=== PATIENT | female | born 2000 | race African-American/Black ===

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

== ENCOUNTER → 2019-01-17 14:00 | Outpatient (CLI) | payer MEDICAID ==
[2018-08-03 18:20] VITALS: BMI 21.8
[~2019-01-17 14:00] MED LIST changes: +PRENAVITE1 TAB PO
[2019-01-17 15:12] LABS: BASOPHILS 0.3 % (0-2); EOSINOPHILS 0.9 % (0-7); HEMATOCRIT 27.1 % (36.0-48.0); HEMOGLOBIN 8.9 g/dL (12-16); IMMATURE GRANULOCYTES 0.2 % (0-5); LYMPHOCYTES 20.2 % (15-50); MCH 25.9 pg (26.0-34.0); MCHC 32.8 g/dL (31.0-37.0); MEAN PLATELET VOLUME 9.9 fL (7.4-10.4); MONOCYTES 7.1 % (2-11); NEUTROPHILS 71.3 % (40-80); PLATELET COUNT 207 10x3/uL (130-400); RBC 3.43 10x6/uL (4.00-5.40); RDW 14.9 % (11.5-14.5); WBC 5.8 10x3/uL (4.8-10.8)
[2019-01-17 15:24] LABS: APPEARANCE HAZY (CLEAR); BILIRUBIN NEGATIVE (NEGATIVE); COLOR YELLOW (YELLOW); GLUCOSE NEGATIVE (NEGATIVE); KETONE NEGATIVE (NEGATIVE); NITRITE NEGATIVE (NEGATIVE); PROTEIN NEGATIVE (NEGATIVE); RED CELLS - URINE OCC /hpf (0-5); SPECIFIC GRAVITY 1.005 (1.005-1.020); UROBILINOGEN NORMAL (NORMAL); WHITE CELLS - URINE 0-5 /hpf (0-5)
[2019-01-17 15:25] LABS: BACTERIA MODERATE /hpf (NONE SEEN)
[2019-01-17 15:32] LABS: ALBUMIN 2.4 g/dL (3.4-5.0); ALKALINE PHOSPHATASE 57 U/L (46-116); ALT (SGPT) 12 U/L (10-68); BILIRUBIN - DIRECT 0.05 mg/dL (0.00-0.30); BILIRUBIN - TOTAL 0.15 mg/dL (0.2-1.3); CALC OSMOLALITY 270 mosm/kg (275-300); CARBON DIOXIDE 21.1 mmol/L (21.0-32.0); CHLORIDE - SERUM 107 mmol/L (98-107); CREATININE - SERUM 0.4 mg/dL (0.6-1.3); GLUCOSE 94 mg/dL (74-106); POTASSIUM - SERUM 3.3 mmol/L (3.5-5.1); PROTEIN - SERUM 5.8 g/dL (6.4-8.2); SODIUM 137 mmol/L (136-145); UREA NITROGEN 4 mg/dL (7-18); URIC ACID 4.1 mg/dL (2.6-7.2); eGFR NON AFRICAN AMERICAN > 90 mL/min (90-120)
== END | disposition home or self-care (01) ==
LOC: D.LDO 14:00
PROVIDERS: ATTEND Obstetrics & Gynecology
DX: O16.3 Unspecified maternal hypertension, third trimester (principal); Z3A.32 32 weeks gestation of pregnancy

== ENCOUNTER → 2019-01-20 10:05 | Outpatient (CLI) | payer MEDICAID ==
[2018-08-03 18:20] VITALS: BMI 21.8
[~2019-01-20 10:05] MED LIST changes: +HYDROCODON-ACE1 EA10 PO; +IBUPROFEN600 MG PO
== END ==
LOC: D.LDO 10:05
PROVIDERS: ATTEND Obstetrics & Gynecology
DX: O16.9 Unspecified maternal hypertension, unspecified trimester (principal); Z3A.00 Weeks of gestation of pregnancy not specified

== ENCOUNTER → 2019-01-20 19:33 | Outpatient (CLI) | payer MEDICAID ==
[2018-08-03 18:20] VITALS: BMI 21.8
== END | disposition home or self-care (01) ==
LOC: D.LDO 19:33
PROVIDERS: ATTEND Obstetrics & Gynecology
DX: O26.899 Other specified pregnancy related conditions, unspecified trimester (principal); Z3A.00 Weeks of gestation of pregnancy not specified

== ENCOUNTER → 2019-01-23 11:23 | Outpatient (CLI) | payer MEDICAID ==
[2018-08-03 18:20] VITALS: BMI 21.8
[~2019-01-23 11:23] MED LIST changes: -HYDROCODON-ACE1 EA10 PO; -IBUPROFEN600 MG PO
[2019-01-26 10:25] LABS: PROTEIN - URINE 23.3 mg/dL (0.0-11.9)
== END | disposition home or self-care (01) ==
LOC: D.LDO 11:23
PROVIDERS: ATTEND Obstetrics & Gynecology
DX: O16.3 Unspecified maternal hypertension, third trimester (principal); Z3A.33 33 weeks gestation of pregnancy

== ENCOUNTER → 2019-01-26 09:22 | Outpatient (CLI) | payer MEDICAID ==
[2018-08-03 18:20] VITALS: BMI 21.8
[2019-01-26 10:45] LABS: BASOPHILS 0.2 % (0-2); HEMATOCRIT 26.4 % (36.0-48.0); HEMOGLOBIN 8.7 g/dL (12-16); IMMATURE GRANULOCYTES 0.2 % (0-5); LYMPHOCYTES 21.7 % (15-50); MCH 25.8 pg (26.0-34.0); MCV 78.3 fL (80.0-100.0); MONOCYTES 5.5 % (2-11); NEUTROPHILS 71.4 % (40-80); PLATELET COUNT 201 10x3/uL (130-400); RBC 3.37 10x6/uL (4.00-5.40); RDW 15.2 % (11.5-14.5); WBC 4.9 10x3/uL (4.8-10.8)
[2019-01-26 11:05] LABS: ALBUMIN 2.4 g/dL (3.4-5.0); ALKALINE PHOSPHATASE 68 U/L (46-116); ALT (SGPT) 12 U/L (10-68); CALC OSMOLALITY 271 mosm/kg (275-300); CALCIUM 7.6 mg/dL (8.5-10.1); CARBON DIOXIDE 22.7 mmol/L (21.0-32.0); CHLORIDE - SERUM 106 mmol/L (98-107); CREATININE - SERUM 0.5 mg/dL (0.6-1.3); GLUCOSE 96 mg/dL (74-106); POTASSIUM - SERUM 3.1 mmol/L (3.5-5.1); PROTEIN - SERUM 5.8 g/dL (6.4-8.2); SODIUM 137 mmol/L (136-145); UREA NITROGEN 6 mg/dL (7-18); eGFR NON AFRICAN AMERICAN > 90 mL/min (90-120)
[2019-01-26 11:06] LABS: BILIRUBIN - DIRECT 0.08 mg/dL (0.00-0.30); BILIRUBIN - INDIRECT 0.12 mg/dL (0.00-1.00)
== END | disposition home or self-care (01) ==
LOC: D.LDO 09:22
PROVIDERS: ATTEND Obstetrics & Gynecology
DX: O26.893 Other specified pregnancy related conditions, third trimester (principal); Z3A.33 33 weeks gestation of pregnancy

== ENCOUNTER 2019-01-27 21:44 | Outpatient (CLI) | payer MEDICAID ==
[2018-08-03 18:20] VITALS: BMI 21.8
[2019-01-27 22:12] LABS: APPEARANCE HAZY (CLEAR); BILIRUBIN NEGATIVE (NEGATIVE); COLOR YELLOW (YELLOW); GLUCOSE NEGATIVE (NEGATIVE); KETONE NEGATIVE (NEGATIVE); NITRITE NEGATIVE (NEGATIVE); PROTEIN NEGATIVE (NEGATIVE)
[2019-01-27 23:09] LABS: BASOPHILS 0.3 % (0-2); EOSINOPHILS 0.8 % (0-7); HEMATOCRIT 27.6 % (36.0-48.0); HEMOGLOBIN 9.1 g/dL (12-16); IMMATURE GRANULOCYTES 0.2 % (0-5); LYMPHOCYTES 24.8 % (15-50); MCH 25.8 pg (26.0-34.0); MCV 78.2 fL (80.0-100.0); MEAN PLATELET VOLUME 9.6 fL (7.4-10.4); MONOCYTES 5.6 % (2-11); NEUTROPHILS 68.3 % (40-80); PLATELET COUNT 213 10x3/uL (130-400); RBC 3.53 10x6/uL (4.00-5.40); RDW 14.9 % (11.5-14.5)
[2019-01-27 23:10] LABS: WBC 6.6 10x3/uL (4.8-10.8)
[2019-01-31] MEDS ORDERED: MACROBID100 MG PO (16:34)
== END 2019-01-28 00:02 | disposition home or self-care (01) ==
LOC: D.LDO 21:44 → D.LD 22:47 → D.LDO 01-28 00:02
PROVIDERS: ATTEND Obstetrics & Gynecology
DX: O26.853 Spotting complicating pregnancy, third trimester (principal); Z3A.33 33 weeks gestation of pregnancy

== ENCOUNTER → 2019-01-31 16:11 | Outpatient (CLI) | payer MEDICAID ==
[2018-08-03 18:20] VITALS: BMI 21.8
[2019-01-31 16:45] LABS: BASOPHILS 0.3 % (0-2); EOSINOPHILS 0.4 % (0-7); HEMATOCRIT 27.5 % (36.0-48.0); HEMOGLOBIN 9.1 g/dL (12-16); IMMATURE GRANULOCYTES 0.3 % (0-5); LYMPHOCYTES 17.2 % (15-50); MCH 26.1 pg (26.0-34.0); MCHC 33.1 g/dL (31.0-37.0); MEAN PLATELET VOLUME 9.4 fL (7.4-10.4); NEUTROPHILS 76.8 % (40-80); PLATELET COUNT 191 10x3/uL (130-400); RBC 3.48 10x6/uL (4.00-5.40); RDW 15.2 % (11.5-14.5); WBC 6.8 10x3/uL (4.8-10.8)
[2019-01-31 17:04] LABS: ALBUMIN 2.4 g/dL (3.4-5.0); ALKALINE PHOSPHATASE 78 U/L (46-116); ALT (SGPT) 8 U/L (10-68); BILIRUBIN - TOTAL 0.19 mg/dL (0.2-1.3); CALC OSMOLALITY 272 mosm/kg (275-300); CALCIUM 7.7 mg/dL (8.5-10.1); CARBON DIOXIDE 23.2 mmol/L (21.0-32.0); CHLORIDE - SERUM 106 mmol/L (98-107); CREATININE - SERUM 0.6 mg/dL (0.6-1.3); GLUCOSE 96 mg/dL (74-106); POTASSIUM - SERUM 3.4 mmol/L (3.5-5.1); PROTEIN - SERUM 5.9 g/dL (6.4-8.2); SODIUM 138 mmol/L (136-145); UREA NITROGEN 4 mg/dL (7-18); eGFR NON AFRICAN AMERICAN > 90 mL/min (90-120)
== END | disposition home or self-care (01) ==
LOC: D.LDO 16:11
PROVIDERS: ATTEND Obstetrics & Gynecology
DX: O16.2 Unspecified maternal hypertension, second trimester (principal)

== ENCOUNTER 2019-02-14 11:21 | Inpatient (IN) | payer MEDICAID ==
[~2019-02-14] VITALS: Ht 167.6 cm; Wt 69.9 kg
[2019-02-14] VITALS (14 sets, daily range): BP systolic 126–155; BP diastolic 59–83; Ht 167.6 cm; Wt 69.9 kg
--- NOTE | ~2019-02-14 | OP ---
PATIENT NAME: KE HAMLIN MEDICAL RECORD: [id number] :99 LOCATION:[facility] [id number] ADMISSION DATE:02/14/19 SURGEON: ISAIAH CABRAL MD DATE OF OPERATION: 02/14/2019 PREOPERATIVE DIAGNOSES: 1. Intrauterine at 36 weeks. 2. Biophysical profile of 10/25. 3. Absent variability on heart rate tracing. POSTOPERATIVE DIAGNOSES: 1. 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 2. Particulate meconium. PROCEDURE: A primary low transverse section. SURGEON: Isaiah Cabral MD ANESTHESIA: Regional via spinal. INTRAVENOUS FLUIDS: Per anesthesia record. SPECIMENS: Placenta and cord for gases. FINDINGS: 1. Amniotic band wrapped around several areas of the cord, causing partial strangulation. 2. Particulate meconium noted. 3. Viable infant, Apgars 9 at one and 9 at five. 4. Placenta delivered manually intact, 3-vessel cord and lasting normal adnexa bilaterally. SPECIMENS: Include placenta and cord for gases. COMPLICATIONS: None apparent. ESTIMATED BLOOD LOSS: 1000 mL. IV FLUIDS: Per anesthesia record. PROCEDURE: The patient taken to the operating room where regional anesthesia was achieved without difficulty. The patient was then prepped and draped in normal sterile fashion in the dorsal supine position. A Roach catheter was in place and draining freely. SCDs were on and functioning normally. Following prep and drape, a Pfannenstiel skin incision was made, extended downward to the underlying subcutaneous fat to level of fascia. The fascia was incised in the midline using the scalpel. The fascial incision extended bilaterally using the Huang scissors. The superior aspect and inferior aspect of the fascial incision were grasped with Carina clamps times 2, tented upward, and sharply dissected from the underlying rectus muscle using the Huang scissors and Bovie cautery. Rectus muscle was bluntly in the midline and the peritoneum was entered at the superior aspect of the incision using the Metzenbaum scissors. The peritoneal incision was then extended bilaterally using the Metzenbaum scissors and direct visualization of the bladder. A bladder blade was placed into the pelvis. A bladder flap was created by excising the anterior leaf of OPERATIVE REPORT [id number] KE HAMLIN the broad ligament across the lower uterine segment. A bladder blade was then replaced over the bladder flap. A low transverse incision was then made in the uterus and extended superiorly and inferiorly using the Pelosi method. meconium was noted upon entry into the uterus. The vertex was delivered atraumatically followed by the body. Of note, was an amniotic band which was wrapped concentrically around multiple parts of the cord, which were found to be significantly narrowed and possibly strangulated. The was bulb suctioned and the cord clamped times 2, cut, and the was handed to awaiting nursery team. Cord was then obtained for gases. The placenta was removed manually intact. Uterus was then exteriorized, cleared of all clots and debris and vigorously massaged. A good uterine tone was noted. The uterine incision was repaired with 0 Vicryl in a running locked fashion times 2 with good hemostasis noted. Posterior cul-de-sac was then thoroughly irrigated and uterus was placed into the pelvis. Anterior cul-de-sac was then thoroughly irrigated. Counts were correct times 2 for sponges, needles, and instruments. The fascia was repaired with 0 loop PDS times 1 and skin repaired with jacki. The patient tolerated procedure well, transferred to postanesthesia recovery stable without incident. TRANSINT:[id number] Voice Confirmation ID: [id number] DOCUMENT ID: [id number] ISAIAH CABRAL MD CC: [id number] DICTATION DATE: 02/18/19 170 PROPERTY CARETAKER: [id number] DIS IN 02/16/19 [facility] [address] [place] [address]
[2019-02-14 12:13] LABS: HEMATOCRIT 27.3 % (36.0-48.0); HEMOGLOBIN 8.9 g/dL (12-16); MCH 25.9 pg (26.0-34.0); MCHC 32.6 g/dL (31.0-37.0); MCV 79.6 fL (80.0-100.0); MEAN PLATELET VOLUME 9.5 fL (7.4-10.4); RBC 3.43 10x6/uL (4.00-5.40); RDW 15.8 % (11.5-14.5); WBC 4.7 10x3/uL (4.8-10.8)
--- NOTE | 2019-02-14 12:57 | NUR ---
1249 VIABLE BABY GIRL DELIVERED, CORD BLOOD AND GASES DONE AND SENT OUT, DENA.
--- NOTE | 2019-02-14 13:48 | NUR ---
RECEIVED PT FROM VIA BED TO ROOM 1276. BED LOCKED. PT AWAKE, AA0 X 3. VSS. HRRR WITHOUT AUDIBLE MURMUR. BBS CLEAR. BS X 4. ABDOMEN SOFT/NON-DISTENDED. FUNDUS FIRM AT U/1. RUBRA LOCHIA SMALL AMT. NO CLOTS NOTED. ABDOMINAL DRESSING DRY WITHOUT DRAINAGE NOTED. PPP. NO EDEMA NOTED TO BLE. PIV TO RIGHT AC WITH NS INFUSING AT KVO RATE. SITE CLEAR. PIV TO LEFT WRIST WITH LR WITH PITOCIN 20 UNITS INFUSING AT 125 ML/HR. SITE CLEAR. ICE PACK TO INCISION. BARRAZA TO GRAVITY DRAINING CLEAR YELLOW URINE INTO BAG. SR UP X 2. CALL LIGHT IN REACH. SCDS ON BLE. PUMP ON.
--- NOTE | 2019-02-14 13:59 | NUR ---
SECOND UNIT PACKED RBC'S UP AT 75 ML/HR TO RIGHT AC. SITE CLEAR.
--- NOTE | 2019-02-14 15:09 | NUR ---
PACKED RBC RATE INCREASED TO 250 ML/HR.
--- NOTE | 2019-02-14 15:50 | NUR ---
unit of prbc finished infusing- line being flushed with ns.
--- NOTE | 2019-02-14 16:27 | NUR ---
IV SITE RT ARM FLUSHED WITH NS AND SALINE LOCK DONE.
--- NOTE | 2019-02-14 16:50 | NUR ---
DR HANDY NOTIFIED SECOND UNIT OF BLOOD COMPLETED. STATES ORDER FOR CBC IN FOR 1999 TONIGHT. NO NEW ORDERS.
--- NOTE | 2019-02-14 17:09 | NUR ---
sitting up in bed- sipping on clear liq diet. ice pac refreshed. fundus uu/firm- no lochia no clots with massage. small to mod lochia noted on her pads- pads changed- rick care done.
--- NOTE | 2019-02-14 19:00 | NUR ---
REPORT RECEIVED FROM CYNTHIA WHEELER. NO REPORTS OF DISTRESS RECEIVED.
--- NOTE | 2019-02-14 19:31 | NUR ---
PATIENT SITTING UP IN BED. PATIENT ALERT AND ORIENTED. ASSESSMENT AND VITAL SIGNS DONE. RESPIRATIONS AT EASE. LUNG SOUNDS CLEAR IN ALL DONOHUE. HEART REGULAR RATE AND RHYTHM. ABDOMEN SOFT AND TENDER TO TOUCH. BOWEL SOUNDS PRESENT IN ALL QUADRANTS. FUNDUS FIRM AND 2 BELOW UMBILICUS. DRESSING DRY AND INTACT. SMALL AMOUNT OF LOCHIA NOTED ON ROCKY PAD. NO EDEMA NOTED. SCD'S ON AND WORKING. BARRAZA CATHETER INTACT AND DRAINING CLEAR YELLOW URINE TO GRAVITY. IV PATENT. NO REDNESS OR EDEMA NOTED TO SITE. PATIENT STATES PAIN 2 OUT OF 10. PATIENT EDUCATED ON COUGHING AND DEEP BREATHING WELL USE OF INCENTIVE SPIROMETER. PATIENT VERBALIZED UNDERSTANDING.
--- NOTE | 2019-02-14 20:27 | NUR ---
LAB CALLED AT THIS TIME TO CHECK ON STATUS OF 2000 LAB DRAW. STOPPING BUILDER STATES SHE IS NOT SURE WHEN THEY WILL BE ABLE TO DO BLOOD WORK BECAUSE SHE IS THE ONLY STOPPING BUILDER AT THIS TIME.
--- NOTE | 2019-02-14 21:00 | NUR ---
PATIENT SITTING UP IN BED. DENIES PAIN AT THIS TIME. RESPIRATIONS AT EASE. PROVIDED PATIENT WILL JELLO AND POPSICKLE. PATIENT DENIES ANY FURTHER NEEDS. BED IN LOWEST POSITION, SIDE RAILS UP X 2, C/L, CRYPTOGRAPHIC MACHINE OPERATOR BUTTON, AND WATER WITHIN REACH.
--- NOTE | 2019-02-14 21:15 | NUR ---
LAB HERE TO DRAW LAB WORK.
[2019-02-14 21:22] LABS: BASOPHILS 0.2 % (0-2); EOSINOPHILS 0.2 % (0-7); HEMATOCRIT 29.3 % (36.0-48.0); HEMOGLOBIN 10.1 g/dL (12-16); IMMATURE GRANULOCYTES 0.2 % (0-5); LYMPHOCYTES 15.2 % (15-50); MCH 27.2 pg (26.0-34.0); MCHC 34.5 g/dL (31.0-37.0); MCV 78.8 fL (80.0-100.0); MEAN PLATELET VOLUME 9.3 fL (7.4-10.4); MONOCYTES 8.7 % (2-11); NEUTROPHILS 75.5 % (40-80); RBC 3.72 10x6/uL (4.00-5.40); RDW 15.1 % (11.5-14.5)
[2019-02-14 21:23] LABS: PLATELET COUNT 166 10x3/uL (130-400); WBC 6.2 10x3/uL (4.8-10.8)
--- NOTE | 2019-02-14 21:30 | NUR ---
NOTIFIED OF CBC RESULTS. NO NEW ORDERS AT THIS TIME.
--- NOTE | 2019-02-14 22:45 | NUR ---
PATIENT LYING IN BED WITH EYES CLOSED. RESPIRATIONS AT EASE. NO SIGNS OF DISTRESS NOTED. BED IN LOWEST POSITION, SIDE RAILS UP X 2, C/L, CENTRAL OFFICE FRAME WIRER BUTTON, AND WATER WITHIN REACH.
--- NOTE | 2019-02-14 23:31 | NUR ---
PATIENT SITTING UP IN BED WATCHING TV. DENIES PAIN AT THIS TIME. DENIES ANY NEEDS. BED IN LOWEST POSITION, SIDE RAILS UP X 2, C/L, UTILITY BILL COMPLAINTS INVESTIGATOR BUTTON, AND WATER WITHIN REACH.
--- NOTE | 2019-02-15 00:30 | NUR ---
PATIENT LYING IN BED WITH EYES CLOSED. RESPIRATIONS AT EASE. NO SIGNS OF DISTRESS NOTED. BED IN LOWEST POSITION, SIDE RAILS UP X 2, C/L, SUPERVISOR WATER SOFTENER SERVICE BUTTON, AND WATER WITHIN REACH.
[2019-02-15 00:31] VITALS: BP 135/80
--- NOTE | 2019-02-15 01:50 | NUR ---
PATIENT LYING QUIETLY IN BED WITH EYES CLOSED. EASILY AROUSED. RESPIRATIONS AT EASE. DENIES PAIN AT THIS TIME. BED IN LOWEST POSTION, SIDE RAILS UP X 2, C/L, MASTER GLAZIER BUTTON, AND WATER WITHIN REACH.
--- NOTE | 2019-02-15 03:30 | NUR ---
PATIENT LYING QUIETLY IN BED WITH EYES CLOSED. EASILY AROUSED. RESPIRATIONS AT EASE. PATIENT DENIES ANY PAIN. DENIES ANY NEEDS OR CONCERNS AT THIS TIME. BED IN LOWEST POSTION, SIDE RAILS UP X 2, C/L, NITROGLYCERIN DISTRIBUTOR BUTTON, AND WATER WITHIN REACH.
[2019-02-15 05:31] VITALS: BP 139/84
--- NOTE | 2019-02-15 05:53 | NUR ---
PATIENT LYING QUIETLY IN BED WITH EYES CLOSED. EASILY AROUSED. STATES PAIN 3 OUT OF 10. ICE PACK APPLIED TO INCISION. ROCKY PAD CHANGED. SMALL AMOUNT OF LOCHIA NOTED ON ROCKY PAD. BARRAZA CATHETER EMPTIED. 600 CC'S OF DARK YELLOW URINE OBTAINED. IV PUMPS CLEARED. CUP OF ICE WATER GIVEN TO PATIENT. PATIENT DENIES ANY FURTHER NEEDS. BED IN LOWEST POSITION, SIDE RAILS UP X 2, C/L, WATER, AND SIEBEL ARCHITECT BUTTON WITHIN REACH.
[2019-02-15 06:09] LABS: RAPID PLASMA REAGIN Non Reactive (Non Reactive)
[2019-02-15 06:13] LABS: BASOPHILS 0.2 % (0-2); EOSINOPHILS 0.6 % (0-7); HEMATOCRIT 31.5 % (36.0-48.0); HEMOGLOBIN 10.7 g/dL (12-16); IMMATURE GRANULOCYTES 0.2 % (0-5); LYMPHOCYTES 14.7 % (15-50); MCH 27.1 pg (26.0-34.0); MCV 79.7 fL (80.0-100.0); MEAN PLATELET VOLUME 9.9 fL (7.4-10.4); MONOCYTES 7.9 % (2-11); NEUTROPHILS 76.4 % (40-80); PLATELET COUNT 181 10x3/uL (130-400); RBC 3.95 10x6/uL (4.00-5.40); RDW 15.1 % (11.5-14.5); WBC 6.6 10x3/uL (4.8-10.8)
--- NOTE | 2019-02-15 07:11 | NUR ---
RECEIVED PT IN SEMI-HINOJOSA'S POSITION . AAO X 3. PT DENIES NEEDS OR C/O AT THIS TIME.
[2019-02-15 08:04] VITALS: BP 131/79
--- NOTE | 2019-02-15 08:10 | NUR ---
PT FINISHED WITH . VSS. HRRR WITHOUT AUDIBLE MURMUR. BBS CLEAR. BS X 4. ABDOMEN SOFT/NON-DISTENDED. PT STATES BELCHING, BUT NO GAS. ABDOMINAL INCISION OPEN TO AIR WITH JOVANNI INTACT. NO REDNESS, SWELLING OR DRAINAGE NOTED. FUNDUS FIRM AT U/1. RUBRA LOCHIA SMALL AMT. PERIPAD CHANGED. NEG HOMANS' SIGN. PPP. NO EDEMA NOTED TO BLE. PIV CONVERTED TO SL TO LEFT WRIST. SITE CLEAR. SL TO RIGHT AC. SITE CLEAR. BARRAZA DC'D WITH 150 ML OF DARK, YELLOW URINE NOTED IN BAG. PT DENIES C/O OR NEEDS.
--- NOTE | 2019-02-15 08:15 | NUR ---
PT C/O INCISIONAL PAIN OF "4" ON 0-10 PAIN SCALE. MOTRIN 600 MG AND NORCO 10/325 GIVEN PO ORDERED. PT INSTRUCTED ON MED. VERBALIZES UNDERSTANDING.
--- NOTE | 2019-02-15 09:54 | NUR ---
PT LYING SUPINE IN BED. EYES CLOSED. RESP NON-LABORED. PT NOT DISTURBED TO ALLOW FOR REST. SR UP X 2. CALL LIGHT IN REACH.
--- NOTE | 2019-02-15 10:55 | NUR ---
PT C/O ITCHING. NO RASH OR REDDENED AREAS NOTED.
--- NOTE | 2019-02-15 11:15 | NUR ---
BENADRYL 25 MG GIVEN PO ORDERED FOR PT C/O ITCHING.
--- NOTE | 2019-02-15 11:30 | NUR ---
PT OOB AND AMB TO BR. VOIDS 500 ML OF BLOOD-TINGED URINE. PERICARE DONE PER PT. PANTIES AND PAD ON. PT SITS UP ON COUCH PER PT REQUEST. DENIES C/O OR NEEDS.
--- NOTE | 2019-02-15 12:20 | NUR ---
PT SITTING UP IN BED. INFANT. DENIES C/O OR NEEDS.
--- NOTE | 2019-02-15 13:20 | NUR ---
PT AMBULATORY IN HALLS TO NURSERY TO TAKE PUMPED BREASTMILK TO NURSERY STAFF. PT FLORI ACTIVITY WELL.
--- NOTE | 2019-02-15 14:04 | NUR ---
PT LYING TO LEFT SIDE IN BED. EYES CLOSED. RESP NON-LABORED. PT NOT DISTURBED TO ALLOW FOR REST. SR UPX 2. CALL LIGHT IN REACH.
--- NOTE | 2019-02-15 15:32 | NUR ---
PT AMBULATORY IN ROOM. PT BACK TO BED. C/O INCISIONAL PAIN OF "4" ON 0-10 PAIN SCALE. MOTRIN 600 MG AND NORCO 10/325 GIVEN PO ORDERED. INSTRUCTED ON MEDS. VERBALIZES UNDERSTANDING.
[2019-02-15 15:34] VITALS: BP 128/72
--- NOTE | 2019-02-15 15:54 | NUR ---
PT UP TO BR. VOIDS 500 ML OF CLOUDY, YELLOW URINE. PT UP TO SHOWER. BED LINENS CHANGED.
--- NOTE | 2019-02-15 16:32 | NUR ---
PT SITTING UP IN BED. PUMPING BREASTMILK AT THIS TIME. DENIES PAIN OR NEEDS.
--- NOTE | 2019-02-15 17:30 | NUR ---
PT SITTING UP IN BED. INFANT. CATHELON TO SL IN LEFT WRIST NOTED OUT. DC'D AND PRESSURE BANDAGE TO SITE.
--- NOTE | 2019-02-15 19:20 | NUR ---
BEDSIDE REPORT REC'D FROM Chandrakant DIAZ RN. LAYING ON RIGHT SIDE RESTING WITH EYES CLOSED. RESPIRATIONS REGULAR AND UNLABORED, NO S/S OF DISTRESS NOTED. PT NOT DISTURBED TO ALLOW FOR REST AT THIS TIME. WILL CONTINUE TO MONITOR.
[2019-02-15 20:09] VITALS: BP 127/69
--- NOTE | 2019-02-15 20:09 | NUR ---
SHIFT ASSESSMENT COMPLETED PER FLOWSHEET. DENIES PAIN AT THIS TIME. VSS. FUNDUS FIRM, MIDLINE, AND U2, SCANT RUBRA LOCHIA, NO CLOTS NOTED. REPORTS THAT SHE IS VOIDING AND PASSING FLATUS WITHOUT DIFFICULTY. RT A/C PIV FLUSHED WITHOUT DIFFICULTY WITH 10 MLS NS, NO S/S OF INFILTRATION NOTED, DRSG CHANGED. ICE WATER PROVIDED. REFUSES SCD'S. POC DISCUSSED WIT PT AND S/O, VERBALIZES UNDERSTANDING AND DENIES QUESTIONS. BED IN LOW POSITION WITH UPPER SIDE RAILS RAISED X2. CALL LIGHT AND PHONE WITHIN REACH.
--- NOTE | 2019-02-15 21:10 | NUR ---
BF AT THIS TIME. DENIES PAIN AND NEEDS. SIGNIFICANT OTHER RESTING ON COUCH AT BEDSIDE. BED IN LOW POSITION WITH UPPER SIDE RAILS RAISED X2. CALL LIGHT AND PHONE WITHIN REACH. WILL CONTINUE TO MONITOR.
--- NOTE | 2019-02-15 23:01 | NUR ---
C/O PAIN 5/10, ABD CRAMPING AND INCISIONAL BURNING AND STINGING. NORCO AND MOTRIN GIVEN PER ORDER AND PT REQUEST. ASSISTANCE WITH LATCHING PROVIDED PER PT REQUEST. DENIES ADDITIONAL NEEDS. REFUSES SCD'S. SIGNIFICANT OTHER RESTING ON COUCH AT BEDSIDE. BED IN LOW POSITION WITH UPPER SIDE RAILS RAISED X2. CALL LIGHT AND PHONE WITHIN REACH. ENCOURAGED PT TO CALL IF ASSISTANCE WITH BF NEEDED, VERBALIZES UNDERSTANDING.
--- NOTE | 2019-02-15 23:50 | NUR ---
PAIN REASSESSMENT COMPLETED, 08/27, DENIES NEED FOR ADDITIONAL INTERVENTION. BACK TO NBN PER PT REQUEST. DENIES NEEDS. REQUESTS THAT V/S BE TAKEN PRIOR TO NEXT FEEDING. CONTINUES TO REFUSE SCD'S. BED IN LOW POSITION WITH UPPER SIDE RAILS RAISED X2. CALL LIGHT AND PHONE WITHIN REACH. WILL CONTINUE TO MONITOR.
--- NOTE | 2019-02-16 01:52 | NUR ---
LAYING ON RIGHT SIDE RESTING WITH EYES CLOSED. RESP REGULAR AND UNLABORED, NO S/S OF DISTRESS NOTED. SIGNIFICANT OTHER RESTING ON COUCH AT BEDSIDE. BED IN LOW POSITION WITH UPPER SIDE RIALS RAISED X2. CALL LIGHT AND PHONE WITHIN REACH. WILL CONTINUE TO MONITOR.
--- NOTE | 2019-02-16 02:48 | NUR ---
BF AT THIS TIME. DENIES PAIN. ICE WATER PROVIDED PER PT REQUEST. INSTRUCTED TO CALL RN WHEN BF COMPLETED FOR V/S CHECK. VERBALIZES UNDERSTANDING. BED IN LOW POSITION WITH UPPER SIDE RAILS RAISED X2. CALL LIGHT AND PHONE WITHIN REACH. WILL CONTINUE TO MONITOR.
[2019-02-16 03:17] VITALS: BP 131/73
--- NOTE | 2019-02-16 03:17 | NUR ---
VSS. FUNDUS REMAINS FIRM, MIDLINE AND U2 WITH SCANT RUBRA LOCHIA, NO CLOTS NOTED. INFANT BACK TO NBN. DENIES PAIN AND NEEDS. SCD'S REFUSED. BED IN LOW POSITION WITH UPPER SIDE RAILS RAISED X2. CALL LIGHT AND PHONE WITHIN REACH. WILL CONTINUE TO MONITOR. SIGNIFICANT OTHER RESTING ON COUCH AT BEDSIDE.
--- NOTE | 2019-02-16 05:11 | NUR ---
LAYING ON LEFT SIDE RESTING WITH EYES CLOSED. RESP REGULAR AND UNLABORED, NO S/S OF DISTRESS NOTED. SIGNIFICANT OTHER RESTING ON COUCH AT BEDSIDE. BED IN LOW POSITION WITH UPPER SIDE RAILS RAISED X2. CALL LIGHT AND PHONE WITHIN REACH. WILL CONTINUE TO MONITOR AND ASSIST PRN.
--- NOTE | 2019-02-16 06:28 | NUR ---
PUMPING AT THIS TIME. C/O ABD AND INCISIONAL ACHING AND CRAMPING, / REQUESTS NORCO AND MOTRIN TOGETHER, GIVEN PER ORDER AND PT REQUEST. ICE WATER PROVIDED. RIGHT AC PIV FLUSHED WITH 10 MLS NS WITHOUT DIFFICULTY, NO S/S OF INFILTRATION NOTED, ECCHYMOSIS NOTED AROUND INSERTION, PT REPORTS THAT WAS DONE WHEN IV WAS STARTED, DENIES PAIN AND TENDERNESS AT SITE. SIGNIFICANT OTHER RESTING ON COUCH AT BEDSIDE. PT REPORTS THAT SHE WILL CALL FOR EBM TO BE SENT TO NBN WHEN SHE COMPLETES PUMPING. BED IN LOW POSITION WITH UPPER SIDE RAILS RAISED X2. CALL LIGHT AND PHONE WITHIN REACH. WILL CONTINUE TO MONITOR.
--- NOTE | 2019-02-16 07:12 | NUR ---
ASSUMED CARE OF THIS PATIENT AT THIS TIME. SLEEPING, RESPIRATIONS EVEN. INFANT IN NURSERY. SIDE RAILS UP X 2, CALL LIGHT IN REACH. WILL COMPLETE SHIFT ASSESSMENT WHEN AWAKE, AFTER BREAKFAST. ANTICIPATE DC HOME TODAY OR ROOMING-IN STATUS. A+ RUBELLA IMMUNE, GBS POSITIVE, TDAP LAST RECEIVED 2016- NEXT DUE 2026.
[2019-02-16] MEDS ORDERED: HYDROCODON-ACE1 EA10 PO (07:53)
[2019-02-16] MEDS ORDERED: IBUPROFEN600 MG PO (07:54)
[2019-02-16 08:14] VITALS: BP 138/66
--- NOTE | 2019-02-16 08:18 | NUR ---
UPON ENTERING ROOM PT EYES CLOSED HOLDING INFANT. AROUSED EASILY. TO CRIB, SHIFT ASSESSMENT COMPLETED. PER RECORDS PT IS SMOKER, PT SAYS SHE HAS NEVER SMOKED. BREASFEEDING AND SOME BOTTLEFEEDING. DENIES PAIN. VISITOR SLEEPING ON COUCH. DISCUSSED ROOMING-IN IF NOT DC'D HOME TODAY. SIDE RAILS UP X 2, CALL LIGHT IN REACH, INFANT BACK IN ARMS FOR PRIOR TO LEAVING ROOM, REMINDED PT NOT TO FALL ASLEEP WITH IN ARMS OR IN BED WITH HER. VERBALIZED UNDERSTANDING.
--- NOTE | 2019-02-16 09:58 | NUR ---
LAYING IN BED NAPPING, AROUSED EASILY. DENIES NEEDING ANYTHING AT THIS TIME. DR HANDY VISITED EARLIER. SIDE RAILS UP X 2, CALL LIGHT IN REACH. IN NURSERY, VISITOR SLEEPING ON COUCH.
--- NOTE | 2019-02-16 10:50 | NUR ---
SITTING UP IN BED TEXTING ON PHONE. SAYS SHE IS WAITING ON TO COME TO ROOM AT 11. DENIES PAIN OR NEEDING ANYTHING AT THIS TIME. SAYS THAT DR HANDY TALKED TO HER ABOUT ROOMING-IN THIS AFTERNOON SOMETIME. TO CALL IF ANYTHING IS NEEDED. VERBALIZED UNDERSTANDING. VISITOR SLEEPING ON COUCH. SIDERAILS UP X 2, CALL LIGHT IN REACH.
--- NOTE | 2019-02-16 12:56 | NUR ---
CURRENTLY UP IN SHOWER. INFANT WILL BE STAYING AT LEAST UNTIL TOMORROW. VISITORS IN ROOM. IN NURSERY UNDER BILI LIGHTS.
--- NOTE | 2019-02-16 13:03 | NUR ---
TALKED TO DR HANDY. DC TO ROOMING-IN STATUS ORDERS RECEIVED.
--- NOTE | 2019-02-16 13:29 | NUR ---
COMPLETED SHOWER. DRESS IN REGULAR CLOTHES. OFFERED PAIN MEDICATION. MOTRIN 600 MG GIVEN AFTER DISCUSSING OPTIONS FOR 4/10 INCISIONAL ACHING. DESIRES TO ROOM IN. PT MOTHER WILL HAVE RX FILLED. WILL ROOM-IN WHEN SHE RETURNS. NO ADDITIONAL REQUESTS. VISITORS X 3 IN ROOM. TO CALL IF ANYTHING ELSE IS NEEDED. INFANT IN NURSERY.
--- NOTE | 2019-02-16 13:42 | NUR ---
SALINE LOCK DC'D WITH TIP INTACT.
--- NOTE | 2019-02-16 15:20 | NUR ---
SITTING UP IN BED HOLDING . DENIES NEEDING ANYTHING. DENIES PAIN. WAITING ON HER MOTHER TO RETURN WITH PRESCRIPTIONS. WILL DC TO ROOMING IN STATUS AT THAT TIME. TO CALL IF ANYTHING IS NEEDED.
--- NOTE | 2019-02-16 19:00 | NUR ---
THIS RN TO ROOM TO VERIFY THAT PT HAS HER PRESCRITIONS. PT VERIFIES THAT SHE DOES. PT INFORMED THAT SHE WILL BE DISCHARGED TO ROOMING AT THIS TIME AND TRANSFERED TO 1257. PT VERBALIZES UNDERSTANDING AND AGREEABLE. PT GATHERS ITEMS AND Charan VILLANUEVA RN TRANSFERS PATIENT AMBULATORY TO 1257.
--- NOTE | 2019-02-16 20:00 | NUR ---
THIS RN TO RM 1257 TO GIVE DISCHARGE TEACHING TO INCLUDE; WARNING SIGNS, PP DEPRESSION, WOUND CARE INSTRUCTIONS,MEDICATION TEACHING AND ROOMING IN POLICY. PT VERBALZIES UNDERSTANDING AND AGREEABLE. PT PROVIDED W/COPY OF DISCHARGE TEACHING, PFW CARD W/INSTRUCTIONS TO CALL ON TUESDAY MORNING FOR A FOLLOW UP APPT.SIGNED COPY OF DISCHARGE TEACHING GIVEN TO PT. ROOMING IN AGREEMENT SIGNED AND PLACED ON INFANTS CHART. PT VERBALIZES UNDERSTANDING THAT INFANT WILL REMAIN IN HER ROOM OVERNIGHT AND THAT SHE MAY NOT LEAVE INFANT IN ROOM BY HER SELF. PT DENIES NEEDS.PT DISCHARGED OUT OF THE COMPUTER AT THAT TIME.
== END 2019-02-16 19:00 | disposition home or self-care (01) | DRG 788 ==
LOC: D.LD 11:21
PROVIDERS: ADMIT Obstetrics & Gynecology; ATTEND Obstetrics & Gynecology
PROC: 10D00Z1 Extraction of Products of Conception, Low, Open Approach (ICD-10-PCS; principal; 2019-02-14 12:32)
DX: O41.8X30 Other specified disorders of amniotic fluid and membranes, third trimester, not applicable or unspecified (principal); Z3A.36 36 weeks gestation of pregnancy; Z37.0 Single live birth; O77.0 Labor and delivery complicated by meconium in amniotic fluid; O76 Abnormality in fetal heart rate and rhythm complicating labor and delivery

== ENCOUNTER 2019-02-19 20:37 | Emergency (ER) | payer MEDICAID ==
[~2019-02-19] VITALS: Ht 167.6 cm; Wt 64.5 kg
[~2019-02-19 20:37] MED LIST changes: +HYDROCODON-ACE1 EA10 PO; +IBUPROFEN600 MG PO
[2019-02-19 20:54] VITALS: Ht 167.6 cm; Wt 64.5 kg
[2019-02-19] MEDS ORDERED: ALDOMET250 MG PO (20:57)
[2019-02-19 21:40] LABS: BASOPHILS 0.2 % (0-2); HEMATOCRIT 34.9 % (36.0-48.0); HEMOGLOBIN 11.7 g/dL (12-16); IMMATURE GRANULOCYTES 0.2 % (0-5); LYMPHOCYTES 26.7 % (15-50); MCH 26.9 pg (26.0-34.0); MCHC 33.5 g/dL (31.0-37.0); MCV 80.2 fL (80.0-100.0); MEAN PLATELET VOLUME 8.9 fL (7.4-10.4); MONOCYTES 8.8 % (2-11); NEUTROPHILS 63.1 % (40-80); RBC 4.35 10x6/uL (4.00-5.40); WBC 4.9 10x3/uL (4.8-10.8)
[2019-02-19 21:54] LABS: ALBUMIN 2.5 g/dL (3.4-5.0); ALKALINE PHOSPHATASE 87 U/L (46-116); ALT (SGPT) 11 U/L (10-68); BILIRUBIN - TOTAL 0.22 mg/dL (0.2-1.3); CALC OSMOLALITY 278 mosm/kg (275-300); CALCIUM 8.1 mg/dL (8.5-10.1); CARBON DIOXIDE 24.7 mmol/L (21.0-32.0); CHLORIDE - SERUM 107 mmol/L (98-107); CREATININE - SERUM 0.6 mg/dL (0.6-1.3); GLUCOSE 108 mg/dL (74-106); POTASSIUM - SERUM 3.4 mmol/L (3.5-5.1); PROTEIN - SERUM 6.4 g/dL (6.4-8.2); SODIUM 141 mmol/L (136-145); UREA NITROGEN 4 mg/dL (7-18); eGFR NON AFRICAN AMERICAN > 90 mL/min (90-120)
[2019-02-19 22:04] LABS: MAGNESIUM - SERUM 1.7 mg/dL (1.8-2.4); PLATELET COUNT 292 10x3/uL (130-400); PRO BNP 179 pg/mL (0-125)
[2019-02-19 22:04] LABS: APPEARANCE CLEAR (CLEAR); COLOR YELLOW (YELLOW)
[2019-02-19 22:05] LABS: BILIRUBIN NEGATIVE (NEGATIVE); GLUCOSE NEGATIVE (NEGATIVE); KETONE NEGATIVE (NEGATIVE); NITRITE NEGATIVE (NEGATIVE); PROTEIN NEGATIVE (NEGATIVE); SPECIFIC GRAVITY 1.015 (1.005-1.020); UROBILINOGEN NORMAL (NORMAL)
[2019-02-19 22:06] LABS: BACTERIA FEW /hpf (NONE SEEN); EPITHELIAL CELLS OCC /hpf (0-5); MUCUS <1+ /lpf (NONE SEEN); RED CELLS - URINE 0-5 /hpf (0-5); WHITE CELLS - URINE OCC /hpf (0-5)
[2019-02-20 01:10] VITALS: BP 131/91
== END 2019-02-20 01:10 | disposition home or self-care (01) ==
LOC: D.ER 20:37
PROVIDERS: Family Medicine
DX: G44.209 Tension-type headache, unspecified, not intractable (principal)